=== PATIENT | male | born 1950 | race Hispanic/Latino ===

== ENCOUNTER 2020-04-19 09:45 | Inpatient (IN) | payer OTHER, MEDICARE ==
[~2020-04-19] VITALS: Ht 172.7 cm; Wt 88.9 kg
[2020-04-19 10:06] LABS: BASOPHILS % (AUTO) 0.2 % (0.0-5.0); EOSINOPHILS % (AUTO) 0.1 % (0.0-8.0); HEMATOCRIT 41.6 % (42-54); LYMPHOCYTES % (AUTO) 17.7 % (21.0-51.0); MEAN CORPUSCULAR HEMOGLOBIN 32.5 pg (27.0-33.0); MEAN CORPUSCULAR HGB CONC 35.1 g/dL (32.0-36.0); MEAN CORPUSCULAR VOLUME 92.7 fL (79-99); MONOCYTES % (AUTO) 10.3 % (3.0-13.0); PLATELET COUNT (AUTO) 149 K/uL (130-400); RED BLOOD CELL COUNT(AUTO) 4.49 MIL/uL (4.50-6.20); RED CELL DISTRIBUTION WIDTH 12.7 % (11.0-15.5); WHITE BLOOD COUNT (AUTO) 18.9 K/uL (4.8-10.8)
[2020-04-19 10:11] LABS: CREATININE 1.2 mg/dL (0.5-1.5); POTASSIUM 3.7 mmol/L (3.5-5.1)
[2020-04-19 10:15] LABS: ALBUMIN 3.2 g/dL (3.5-5.0); BILIRUBIN,TOTAL 1.1 mg/dL (0.2-1.0); TOTAL PROTEIN, SERUM 7.2 g/dL (6.0-8.3)
[2020-04-19] MEDS ORDERED: FAMOTIDINE/PF 20 MG/2 ML VIAL IV ONE (10:19)
[2020-04-19] MEDS ORDERED: MORPHINE SULFATE 2 MG/ML 1ML SYG ONE (10:19)
[2020-04-19] MEDS ORDERED: ONDANSETRON HCL 4 MG/2 ML VIAL ONE (10:19)
[2020-04-19 10:27] LABS: APPEARANCE,URINE Cloudy (CLEAR); BILIRUBIN,URINE Moderate (NEGATIVE); COLOR,URINE Orange (YELLOW); GLUCOSE, URINE (UA) 500 mg/dL (NEGATIVE); KETONES,URINE Trace mg/dL (NEGATIVE); LEUKOCYTE ESTERASE ,URINE Small (NEGATIVE); NITRATE,URINE Positive (NEGATIVE); OCCULT BLOOD,URINE Negative (NEGATIVE); PROTEIN,URINE POS 2+ mg/dL (NEGATIVE)
[2020-04-19] MEDS ORDERED: SODIUM CHLORIDE 0.9% 1000ML 1,000 ML IV ONE (10:27)
[2020-04-19 10:35] LABS: AMPHET/METH SCREEN,URINE NEGATIVE (NEGATIVE); BARBITURATE SCREEN, URINE NEGATIVE (NEGATIVE); BENZODIAZEPINES SCREEN,URINE NEGATIVE (NEGATIVE); CANNABINOID SCREEN,URINE NEGATIVE (NEGATIVE); COCAINE SCREEN,URINE NEGATIVE (NEGATIVE); OPIATE SCREEN,URINE NEGATIVE (NEGATIVE); PHENCYCLIDINE SCREEN,URINE NEGATIVE (NEGATIVE)
[2020-04-19 10:39] LABS: B-TYPE NATRIURETIC PEPTIDE 18 pg/mL (0-100)
[2020-04-19 10:40] LABS: MUCUS,URINE Many LPF (None Seen)
[2020-04-19 10:41] LABS: BACTERIA,URINE Few /HPF (None Seen); FINE GRANULAR CASTS,URINE 0-2 /LPF (None Seen); RBC,URINE None Seen /HPF (0-1); SQUAMOUS EPITHELIAL CELL,UR 0-2 /HPF (0-2); TRANSITIONAL EPI CELLS,URINE Rare /HPF (None Seen)
[2020-04-19] MEDS ORDERED: IOHEXOL-350 75 ML VIAL IV ONE (10:45)
[2020-04-19] MEDS ORDERED: CEFTRIAXONE SODIUM 1 GM ONE (11:21)
[2020-04-19] MEDS ORDERED: LEVOFLOXACIN 750 MG/D5W 150 ML 150 ML ONE (11:58)
[2020-04-19] MEDS: SODIUM CHLORIDE 0.9% 1000ML 1,000 ML IV SCH ×2 (14:15→21:09)
[2020-04-19] MEDS ORDERED: MAG HYDROX/AL HYDROX/SIMETH ES 30 ML SUSP UDCUP PO PRN (14:15)
[2020-04-19] MEDS ORDERED: ACETAMINOPHEN-CODEINE 300/30MG TAB PO PRN (14:15)
[2020-04-19] MEDS ORDERED: RENAL DOSE IV SCH (14:15)
[2020-04-19] MEDS ORDERED: LACTULOSE 20 GM/30 ML UDCUP PO PRN (14:15)
[2020-04-19] MEDS ORDERED: NITROGLYCERIN 0.4 MG SL TAB SL PRN (14:15)
[2020-04-19] MEDS ORDERED: MORPHINE SULFATE 2 MG/ML 1ML SYG IV PRN (14:15)
[2020-04-19] MEDS: ZOSYN 3.375GM+NS 50ML 50 ML IV SCH (14:15)
[2020-04-19] MEDS ORDERED: DiphenhydrAMINE HCL 50 MG/ML VIAL IV PRN (14:15)
[2020-04-19] MEDS ORDERED: ONDANSETRON HCL 4 MG/2 ML VIAL IV PRN (14:15)
[2020-04-19] MEDS ORDERED: DIPHENHYDRAMINE HCL 25 MG CAPSULE PO PRN (14:15)
[2020-04-19] MEDS ORDERED: ACETAMINOPHEN 325 MG TAB PO PRN (14:15)
[2020-04-19] MEDS ORDERED: HYDRALAZINE HCL 20 MG/ML VIAL IV PRN (14:15)
[2020-04-19] MEDS ORDERED: ACETAMINOPHEN 325 MG TAB ONE (14:58)
[2020-04-19 15:00] LABS: CRP QUANTITATIVE 221.1 mg/L (0.00-9.0)
[2020-04-19 15:21] VITALS: BP 127/74
[2020-04-19] MEDS ORDERED: VANCOMYCIN PROTOCOL PER PHARMACY IV SCH (15:30)
[2020-04-19] MEDS ORDERED: PRAV20TA4 PO (15:38)
[2020-04-19] MEDS ORDERED: LOSA50TA64 PO (15:38)
[2020-04-19] MEDS ORDERED: AMLO-257 PO (15:38)
[2020-04-19] MEDS: VANCOMYCIN 1GM+NS 250ML 250 ML IV SCH (15:54)
[2020-04-19] MEDS ORDERED: AMLODIPINE BESYLATE 5 MG TAB PO SCH (16:30)
[2020-04-19] MEDS ORDERED: IBUPROFEN 400 MG TABLET PO SCH (18:45)
[2020-04-19 20:18] VITALS: BP 105/50
[2020-04-19] MEDS ORDERED: HEPARIN SODIUM 5000UNIT/ML 1ML VIAL SQ SCH (21:00)
[2020-04-19] MEDS: AMLODIPINE BESYLATE 5 MG TAB PO SCH (21:09)
[2020-04-19] MEDS: FAMOTIDINE/PF 20 MG/2 ML VIAL IV SCH (21:09)
--- NOTE | 2020-04-19 21:10 | NUR ---
MEDS SHIFT ASSESSMENT DONE, PLEASE REFER TO CHART. 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 FURTHER VERBALIZES OF ABDOMINAL PAINS WITH MOVEMENT. DUE MEDS ADMINISTERED, GUAIFENESIN AND TYLENOL GIVEN FOR COUGH AND PAINS. PT TOLERATED MEDS WELL. KEPT NPO EXCEPT MEDS. KEPT RESTED IN BED WITH HOB ELEVATED. WILL RE-ASSESS PT. CALL LIGHT WITHIN REACH. Addendum: 04/20/20 at 0252 by SHARI FOWLER RN RN Amended: Links added.
[2020-04-19] MEDS: GUAIFENESIN-DM 200/20 MG 10 ML PO PRN (21:18)
[2020-04-19] MEDS: ACETAMINOPHEN 325 MG TAB PO PRN (21:19)
[2020-04-19 23:44] VITALS: BP 104/58
[2020-04-20] MEDS: SODIUM CHLORIDE 0.9% 1000ML 1,000 ML IV SCH ×3 (01:08→18:28)
[2020-04-20] MEDS: ZOSYN 3.375GM+NS 50ML 50 ML IV SCH ×2 (01:46→21:51)
--- NOTE | 2020-04-20 01:53 | NUR ---
MEDS PT STILL AWAKE, DENIES ANY NEEDS AT THIS TIME. NO DISTRESS NOTED. DUE ZOSYN DOSE HUNG. ENCOURAGED TO REST AND SLEEP. WILL MONITOR PT.
[2020-04-20 03:19] VITALS: BP 121/66
[2020-04-20] MEDS: VANCOMYCIN 1GM+NS 250ML 250 ML IV SCH ×2 (04:48→21:50)
[2020-04-20 05:16] LABS: BASOPHILS % (AUTO) 0.2 % (0.0-5.0); EOSINOPHILS % (AUTO) 0.2 % (0.0-8.0); HEMATOCRIT 37.1 % (42-54); LYMPHOCYTES % (AUTO) 10.1 % (21.0-51.0); MEAN CORPUSCULAR HEMOGLOBIN 32.1 pg (27.0-33.0); MEAN CORPUSCULAR VOLUME 94.4 fL (79-99); MONOCYTES % (AUTO) 7.6 % (3.0-13.0); NEUTROPHILS % (AUTO) 81.7 % (40.0-77.0); PLATELET COUNT (AUTO) 118 K/uL (130-400); RED BLOOD CELL COUNT(AUTO) 3.93 MIL/uL (4.50-6.20); RED CELL DISTRIBUTION WIDTH 13.1 % (11.0-15.5); WHITE BLOOD COUNT (AUTO) 9.6 K/uL (4.8-10.8)
[2020-04-20 05:31] LABS: ALBUMIN 2.3 g/dL (3.5-5.0); BILIRUBIN,TOTAL 0.8 mg/dL (0.2-1.0); MAGNESIUM 1.9 mg/dL (1.80-2.40); PHOSPHORUS 2.3 mg/dL (2.5-4.9); POTASSIUM 4.4 mmol/L (3.5-5.1)
--- NOTE | 2020-04-20 06:00 | NUR ---
ROUNDS PT RESTING WELL, NO DISTRESS NOTED. KEPT UNDISTURBED FOR NOW. KEPT NPO. FOR MORE CARE.
[2020-04-20 06:02] LABS: CRP QUANTITATIVE 286.2 mg/L (0.00-9.0)
[2020-04-20] MEDS: FAMOTIDINE/PF 20 MG/2 ML VIAL IV SCH ×2 (08:08→21:50)
[2020-04-20 08:34] VITALS: BP 112/62
--- NOTE | 2020-04-20 08:58 | NUR ---
MRCP PATIENT HAS BEEN TRANSPORTED DOWN FOR AN MRCP IN STABLE CONDITION.
--- NOTE | 2020-04-20 09:38 | NUR ---
BACK FROM MRCP PATIENT RETURNED FROM THE [facility] IN STABLE CONDITION. PLACED BACK ON HIS IV FLUIDS. WILL CONTINUE TO MONITOR.
--- NOTE | 2020-04-20 09:45 | NUR ---
SURGERY MAUREEN PALACIOS PA-C CAME IN TO SEE PATIENT. NO NEW ORDERS AT PRESENT. WILL WAIT FOR MRCP RESULTS TO PLACE ORDERS.
[2020-04-20 10:45] VITALS: BP 114/63
--- NOTE | 2020-04-20 10:55 | NUR ---
REPORT REPORT CALLED TO BREANNA HUERTA. PATIENT WILL BE TRANSFERRED TO ROOM 221 TO R/O [facility]-. PATIENT IS IN STABLE CONDITION. ALL PERSONAL BELONGINGS TAKEN WITH PATIENT.
--- NOTE | 2020-04-20 11:59 | NUR ---
DCP Pt currently being transfer to [facility]. CM called pt's spouse on facesheet, spoke to Cherry Kaplan discussed dc plans. Pt is independent prior to admission, lives at home w/spouse and grandson. Denies any equipments/services. Feels safe to go back home, still drives, spouse able to assist with transportation and needs as necessary. DC plan to home once stable. CM to cont to follow up. Addendum: 04/20/20 at 1201 by MAYRA PALACIOS LVN CM Amended: Links added.
[2020-04-20 15:13] VITALS: BP 108/50
[2020-04-20 20:30] VITALS: BP 135/69
[2020-04-20] MEDS: AMLODIPINE BESYLATE 5 MG TAB PO SCH (21:50)
[2020-04-21] VITALS (22 sets, daily range): BP systolic 114–142; BP diastolic 62–79
[2020-04-21] MEDS: SODIUM CHLORIDE 0.9% 1000ML 1,000 ML IV SCH ×2 (01:16→17:09)
[2020-04-21 05:58] LABS: BASOPHILS % (AUTO) 0.3 % (0.0-5.0); EOSINOPHILS % (AUTO) 0.7 % (0.0-8.0); HEMATOCRIT 34.4 % (42-54); LYMPHOCYTES % (AUTO) 9.4 % (21.0-51.0); MEAN CORPUSCULAR HGB CONC 33.7 g/dL (32.0-36.0); MEAN CORPUSCULAR VOLUME 94.8 fL (79-99); MONOCYTES % (AUTO) 8.9 % (3.0-13.0); NEUTROPHILS % (AUTO) 80.2 % (40.0-77.0); PLATELET COUNT (AUTO) 151 K/uL (130-400); RED BLOOD CELL COUNT(AUTO) 3.63 MIL/uL (4.50-6.20); RED CELL DISTRIBUTION WIDTH 13.3 % (11.0-15.5); WHITE BLOOD COUNT (AUTO) 9.7 K/uL (4.8-10.8)
[2020-04-21 06:13] LABS: ALBUMIN 2.3 g/dL (3.5-5.0); BILIRUBIN,TOTAL 0.5 mg/dL (0.2-1.0); CREATININE 0.8 mg/dL (0.5-1.5); POTASSIUM 3.7 mmol/L (3.5-5.1)
[2020-04-21] MEDS: FAMOTIDINE/PF 20 MG/2 ML VIAL IV SCH ×2 (09:03→22:05)
[2020-04-21] MEDS: VANCOMYCIN 1GM+NS 250ML 250 ML IV SCH ×2 (09:18→22:07)
[2020-04-21] MEDS ORDERED: LACTATED RINGERS 1000ML 1,000 ML IV ONE (11:18)
--- NOTE | 2020-04-21 11:22 | NUR ---
Consent Pt signed consent for bret duggan. Pt has not questions at this time. Security called for pt belongings which include boots, clothes, belt, shirt, phone-cricket, wedding ring-yellow, medication. Pt in no sign of distress, denies sob, pain or discomfort.
--- NOTE | 2020-04-21 11:31 | NUR ---
POTENTIAL FOR INFECTION: CLIPPED ENTIRE ABDOMEN PER RAMÍREZ ASKEW.
[2020-04-21] MEDS ORDERED: IPRATROPIUM/ALBUTEROL SULFATE 3 ML SOLUTION IH PRN (12:30)
[2020-04-21] MEDS ORDERED: BUPIVACAINE/PF 0.5% 30ML VIAL ONE (12:43)
[2020-04-21] MEDS ORDERED: ALBUTEROL INHALER 90MCG/INH IH PRN (12:45)
[2020-04-21] MEDS ORDERED: LIDOCAINE PF 2% 5ML ABBOJECT ONE (12:53)
[2020-04-21] MEDS ORDERED: PROPOFOL 10 MG/ML 20ML VIAL IV ONE (12:54)
[2020-04-21] MEDS ORDERED: ROCURONIUM 10MG/1ML SYR 10 MG/ML ML ONE (12:54)
[2020-04-21] MEDS ORDERED: FENTANYL CITRATE PF 50 MCG/1 ML 2ML VIAL ONE ×2 (12:54→14:38)
[2020-04-21] MEDS ORDERED: MIDAZOLAM HCL 1 MG/ML 2ML VIAL ONE (12:54)
[2020-04-21] MEDS ORDERED: EPHEDRINE SULFATE 50 MG/ML AMPULE ONE (13:01)
[2020-04-21] MEDS ORDERED: SUCCINYLCHOLINE CHLORIDE 20 MG/ML 10 ML VIAL ONE (13:10)
[2020-04-21] MEDS ORDERED: ONDANSETRON HCL 4 MG/2 ML VIAL ONE (13:16)
[2020-04-21] MEDS ORDERED: NEOSTIGMINE 5MG/5ML SYR IV ONE (13:17)
[2020-04-21] MEDS ORDERED: GLYCOPYRROLATE 1 MG/5 ML SYRINGE ONE (13:17)
[2020-04-21] MEDS: ZOSYN 3.375GM+NS 50ML 50 ML IV SCH ×3 (14:10→22:08)
[2020-04-21] MEDS: GUAIFENESIN-DM 200/20 MG 10 ML PO PRN (18:21)
[2020-04-21] MEDS: AMLODIPINE BESYLATE 5 MG TAB PO SCH (22:32)
[2020-04-22] VITALS: BP 137/77
[2020-04-22 04:00] VITALS: BP 130/72
[2020-04-22] MEDS: SODIUM CHLORIDE 0.9% 1000ML 1,000 ML IV SCH ×2 (04:06→16:28)
[2020-04-22 04:08] LABS: BASOPHILS % (AUTO) 0.1 % (0.0-5.0); LYMPHOCYTES % (AUTO) 6.9 % (21.0-51.0); MEAN CORPUSCULAR HEMOGLOBIN 31.3 pg (27.0-33.0); MEAN CORPUSCULAR HGB CONC 33.6 g/dL (32.0-36.0); MONOCYTES % (AUTO) 6.3 % (3.0-13.0); NEUTROPHILS % (AUTO) 85.8 % (40.0-77.0); PLATELET COUNT (AUTO) 155 K/uL (130-400); RED BLOOD CELL COUNT(AUTO) 3.55 MIL/uL (4.50-6.20); RED CELL DISTRIBUTION WIDTH 13.2 % (11.0-15.5); WHITE BLOOD COUNT (AUTO) 9.6 K/uL (4.8-10.8)
[2020-04-22 04:30] LABS: ALBUMIN 2.1 g/dL (3.5-5.0); BILIRUBIN,TOTAL 0.4 mg/dL (0.2-1.0); CREATININE 0.7 mg/dL (0.5-1.5); POTASSIUM 3.9 mmol/L (3.5-5.1); TOTAL PROTEIN, SERUM 5.9 g/dL (6.0-8.3)
[2020-04-22] MEDS: IPRATROPIUM 0.5 MG/2.5 ML INH IH PRN ×2 (06:30→18:53)
[2020-04-22 08:00] VITALS: BP 146/79
[2020-04-22] MEDS: FAMOTIDINE/PF 20 MG/2 ML VIAL IV SCH ×2 (08:27→21:03)
[2020-04-22] MEDS: NICOTINE 21 MG/ 24 HR PATCH TD SCH (08:27)
[2020-04-22] MEDS: VANCOMYCIN 1GM+NS 250ML 250 ML IV SCH (08:27)
[2020-04-22] MEDS: ZOSYN 3.375GM+NS 50ML 50 ML IV SCH ×2 (08:28→21:03)
[2020-04-22 12:00] VITALS: BP 136/72
[2020-04-22 16:00] VITALS: BP 133/85
[2020-04-22 20:00] VITALS: BP 138/74
[2020-04-22] MEDS: AMLODIPINE BESYLATE 5 MG TAB PO SCH (21:04)
[2020-04-22] MEDS: GUAIFENESIN-DM 200/20 MG 10 ML PO PRN (21:12)
[2020-04-23] VITALS: BP 135/73
[2020-04-23 04:00] VITALS: BP 137/72
[2020-04-23] MEDS: SODIUM CHLORIDE 0.9% 1000ML 1,000 ML IV SCH (04:15)
[2020-04-23 06:11] LABS: BASOPHILS % (AUTO) 0.2 % (0.0-5.0); EOSINOPHILS % (AUTO) 0.8 % (0.0-8.0); HEMATOCRIT 33.3 % (42-54); LYMPHOCYTES % (AUTO) 23.3 % (21.0-51.0); MEAN CORPUSCULAR HEMOGLOBIN 31.5 pg (27.0-33.0); MEAN CORPUSCULAR HGB CONC 33.9 g/dL (32.0-36.0); MEAN CORPUSCULAR VOLUME 92.8 fL (79-99); MONOCYTES % (AUTO) 15.3 % (3.0-13.0); PLATELET COUNT (AUTO) 199 K/uL (130-400); RED BLOOD CELL COUNT(AUTO) 3.59 MIL/uL (4.50-6.20); RED CELL DISTRIBUTION WIDTH 13.3 % (11.0-15.5); WHITE BLOOD COUNT (AUTO) 9.5 K/uL (4.8-10.8)
[2020-04-23 06:18] LABS: CREATININE 0.7 mg/dL (0.5-1.5); POTASSIUM 3.3 mmol/L (3.5-5.1)
[2020-04-23] MEDS: IPRATROPIUM 0.5 MG/2.5 ML INH IH PRN (06:32)
[2020-04-23 07:56] VITALS: BP 158/75
[2020-04-23] MEDS ORDERED: LEVO750T46 PO (08:12)
[2020-04-23] MEDS: ZOSYN 3.375GM+NS 50ML 50 ML IV SCH (08:30)
[2020-04-23] MEDS: FAMOTIDINE/PF 20 MG/2 ML VIAL IV SCH (08:31)
[2020-04-23] MEDS: NICOTINE 21 MG/ 24 HR PATCH TD SCH (09:55)
[2020-04-23 11:08] VITALS: BP 146/75
[2020-04-23] MEDS: ACETAMINOPHEN 325 MG TAB PO PRN (12:03)
--- NOTE | 2020-04-23 12:08 | NUR ---
DARLEEN DARLEEN REMOVED, TUBE INTACT UP D/C AND PT JANIS REMOVAL WELL, COVERED WITH 4X4 DRESSING
--- NOTE | 2020-04-23 12:26 | NUR ---
D/C PT GIVEN D/C INSTRUCTIONS WITH F/U APPT TO SEE DR. FERNANDEZ AND PT AWARE TO SEE PRIMARY IN 3 DAYS. PT A/A X 3, PT LEAVING IN WHEELCHAIR IN PVT CAR WITH NO COMPLICATION OR QUESTIONS FROM D/C. PT V/S STABLE UPON DC AND DRESSING DRY AND INTACT
--- NOTE | 2020-04-23 12:34 | NUR ---
DR. FERNANDEZ CAME TO SEE PT AT BEDSIDE BEFOR D/C NO NEW ORDERS AT THIS TIME AND OK TO D/C.
== END 2020-04-23 12:38 | disposition home or self-care (01) | DRG 854 ==
LOC: EDH 09:45 → EDHIP 14:15 → 3CH 15:11 → 2DH 04-20 11:01 → 3AH 04-21 15:45
PROVIDERS: ADMIT Family Medicine; ATTEND Family Medicine
PROC: 0FT44ZZ Resection of Gallbladder, Percutaneous Endoscopic Approach (ICD-10-PCS; principal; 2020-04-21 12:44)
DX: A41.9 Sepsis, unspecified organism (principal); K80.00 Calculus of gallbladder with acute cholecystitis without obstruction; J98.11 Atelectasis; N39.0 Urinary tract infection, site not specified; A09 Infectious gastroenteritis and colitis, unspecified; K82.A1 Gangrene of gallbladder in cholecystitis; R65.20 Severe sepsis without septic shock; I10 Essential (primary) hypertension; E78.5 Hyperlipidemia, unspecified; F17.210 Nicotine dependence, cigarettes, uncomplicated; G47.00 Insomnia, unspecified; K42.9 Umbilical hernia without obstruction or gangrene; K57.30 Diverticulosis of large intestine without perforation or abscess without bleeding; K59.00 Constipation, unspecified; K66.0 Peritoneal adhesions (postprocedural) (postinfection); K76.0 Fatty (change of) liver, not elsewhere classified; K76.89 Other specified diseases of liver; K82.8 Other specified diseases of gallbladder; N28.1 Cyst of kidney, acquired; Z20.828 Contact with and (suspected) exposure to other viral communicable diseases; B96.20 Unspecified Escherichia coli [E. coli] as the cause of diseases classified elsewhere
CPT/HCPCS: 36415; 71045; 71250; 74177; 74181; 76705; 78582; 80048; 80053; 80202; 80305; 81001; 82728; 83605; 83615; 83690; 83735; 83880; 84100; 84145; 84484; 85025; 85378; 86140; 87040; 87077; 87088; 87186; 87486; 87581; 87633; 87798; 87804; 93005; 93970; 94640; 94664; A9540; A9558; G0378; J0330; J0696; J1644; J1956; J2001; J2250; J2405; J2543; J2704; J2710; J3010; J3370; J3490; J7030; J7120; Q9967

== ENCOUNTER 2023-10-06 08:26 | Emergency (ER) | payer MEDICARE, OTHER ==
[~2023-10-06] VITALS: Ht 172.7 cm; Wt 81.6 kg
[~2023-10-06 08:26] MED LIST: AMLO-257 PO; LEVO750T39 PO; LOSA50TA64 PO; PRAV20TA4 PO
[2023-10-06 08:35] VITALS: BP 179/85; PULSE 16; RESP 16
== END 2023-10-06 18:15 | disposition home or self-care (01) ==
LOC: EDH 08:26
DX: K40.90 Unilateral inguinal hernia, without obstruction or gangrene, not specified as recurrent (principal); I10 Essential (primary) hypertension; E78.00 Pure hypercholesterolemia, unspecified; Z79.899 Other long term (current) drug therapy
CPT/HCPCS: 72192

== ENCOUNTER 2023-10-10 07:06 | Emergency (ER) | payer OTHER ==
[~2023-10-10] VITALS: Ht 172.7 cm; Wt 81.6 kg
[2023-10-10] MEDS ORDERED: METH4TAB3 PO (07:56)
[2023-10-10] MEDS ORDERED: SOLU-MEDROL 125MG VIAL IVP ONE (08:00)
[2023-10-10] MEDS ORDERED: HYDROCODONE/ACETAMINOPHEN 5/325 MG TAB PO ONE (08:00)
[2023-10-10 08:09] VITALS: BP 166/84; PULSE 61; RESP 16; O2SAT 98
== END 2023-10-10 08:20 | disposition home or self-care (01) ==
LOC: EDH 07:06
DX: S76.011A Strain of muscle, fascia and tendon of right hip, initial encounter (principal); M79.18 Myalgia, other site; E11.9 Type 2 diabetes mellitus without complications; E78.00 Pure hypercholesterolemia, unspecified; I10 Essential (primary) hypertension; Z79.899 Other long term (current) drug therapy; Z90.49 Acquired absence of other specified parts of digestive tract; X58.XXXA Exposure to other specified factors, initial encounter; Y93.89 Activity, other specified; Y92.89 Other specified places as the place of occurrence of the external cause; Y99.8 Other external cause status
CPT/HCPCS: 99283; 96374; J2930